=== PATIENT | female | born 1945 | race Caucasian/White ===

== ENCOUNTER → 2016-08-23 10:32 | Outpatient (CLI) | payer MEDICARE ==
[2016-05-07 13:01] VITALS: BMI 31.1
[~2016-08-23 10:32] MED LIST: ASPIRIN325 MG PO; HYZAAR 50-12.51 TAB PO; LIPITOR80 MG PO; PREDNISONE20 MG PO; PULMICORT0.5 MG/21 UPD; SINGULAIR10 MG PO; TESSALON PERLE100 MG PO; ZOLOFT50 MG PO
== END | disposition home or self-care (01) ==
LOC: D.RT 10:32
DX: J44.9 Chronic obstructive pulmonary disease, unspecified (principal)